=== PATIENT | male | born 1940 | race Caucasian/White ===

== ENCOUNTER 2016-06-15 12:15 | Emergency (ER) | payer MEDICARE, OTHER ==
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
[2016-06-15 12:39] VITALS: TEMP 97.6
[2016-06-15] MEDS: SODIUM CHLORIDE 0.9% 1000ML 1,000 ML IVS ONE (12:58)
--- NOTE | 2016-06-15 13:49 | CT ---
Study: CT of the Head. Indication: Found unresponsive Technique: Axial CT images of the head were acquired without intravenous contrast. Comparison: November 18, 2010. Findings: No CT evidence of acute ischemia, acute hemorrhage, mass, mass effect, midline shift, or extra-axial fluid collection. Tiny remote left caudate head lacunar infarct. Ventricles are normal in configuration without hydrocephalus. Patchy hypoattenuation of the periventricular and subcortical white matter noted. This is nonspecific but most consistent with chronic microvascular ischemic change. Global parenchymal volume loss and intracranial atherosclerosis noted as well. Paranasal sinuses are adequately aerated. Mastoid air cells are adequately aerated. Osseous structures and soft tissues are unremarkable. Impression: 1. No CT evidence of acute intracranial abnormality. Stable examination.If persistent concern for acute ischemia, correlation with MRI recommended. Electronically signed by: Ramin Luevano MD 06/15/2016 1:49 PM CDT
[2016-06-15 14:56] VITALS: BP 107/58; O2SAT 98
== END 2016-06-15 14:35 | disposition home or self-care (01) ==
LOC: ER 12:15
DX: F10.929 Alcohol use, unspecified with intoxication, unspecified (principal); Y90.8 Blood alcohol level of 240 mg/100 ml or more; Z86.73 Personal history of transient ischemic attack (TIA), and cerebral infarction without residual deficits; Z79.82 Long term (current) use of aspirin; Z79.899 Other long term (current) drug therapy
CPT/HCPCS: 70450; 80053; 80320; 82550; 82553; 84484; 85025; J7030

== ENCOUNTER → 2016-06-22 | Outpatient (CLI) | payer MEDICARE, OTHER | END | disposition home or self-care (01) | LOC: LAB.O 10:42 | PROVIDERS: ATTEND Nurse Practitioner Family | DX: I10 Essential (primary) hypertension (principal) ==

== ENCOUNTER → 2016-11-16 | Outpatient (CLI) | payer MEDICARE, OTHER | END | disposition home or self-care (01) | LOC: RESP 09:45 | PROVIDERS: ATTEND Orthopaedic Surgery | DX: M17.12 Unilateral primary osteoarthritis, left knee (principal) ==

== ENCOUNTER → 2016-11-18 | Outpatient (CLI) | payer MEDICARE, OTHER | END | disposition home or self-care (01) | LOC: LAB.O 09:31 | PROVIDERS: ATTEND Nurse Practitioner Family | DX: I10 Essential (primary) hypertension (principal) ==

== ENCOUNTER → 2016-11-23 | Outpatient (CLI) | payer MEDICARE, OTHER | END | disposition home or self-care (01) | LOC: LAB.O 10:02 | PROVIDERS: ATTEND Nurse Practitioner Family | DX: E87.1 Hypo-osmolality and hyponatremia (principal) ==

== ENCOUNTER 2016-12-11 05:48 | Inpatient (IN) | payer MEDICARE, OTHER ==
--- NOTE | 2016-12-10 11:20 | HP ---
CHIEF COMPLAINT: Left knee pain. HISTORY OF PRESENT ILLNESS: Mr. Diego is a 76-year-old male with a history of severe pain in the knee. He has had conservative measures inclusive of injections. He has had no recent trauma, denies any neurologic symptoms and denies any radiation of pain. He has had pain that now is putting him in a wheelchair. Because of his ongoing pain, he has requested operative intervention. After discussing the risks, benefits and alternatives to that, the patient has given informed consent. PAST SURGICAL HISTORY: 1. Open reduction and internal fixation of his ankle. MEDICATIONS: 1. Chlorthalidone. ALLERGIES: NO KNOWN DRUG ALLERGIES. CODE STATUS: Full code. IMMUNIZATIONS: Up to date. SOCIAL HISTORY: The patient does not use any illicit drugs. He does smoke and dose use alcohol on occasion. FAMILY HISTORY: None pertinent to today's complaint. REVIEW OF SYSTEMS: Negative except as indicated in the History of Present Illness. PHYSICAL EXAMINATION: VITAL SIGNS: Blood pressure 180/90. Pulse 70. Height 5'7". Weight 163. MENTAL STATUS: The patient is awake, alert, and is able to give a good history and participate in the physical. The patient is oriented to person, place and time. SKIN: Normal tone and turgor. HEENT: Normocephalic, atraumatic. Pupils equal, round and reactive. Mucosal membranes are moist. NECK: Normal range of motion. No thyromegaly, no lymphadenopathy. CHEST: Normal respiratory excursion. CARDIAC: Regular rate and rhythm. No murmurs, rubs or gallops. MUSCULOSKELETAL: Bilateral upper extremities show full active range of motion without significant pain. He has intact sensation and they are warm and well perfused. Strength is 5/5. There is no crepitus. There are no deformities. The right lower extremity shows range of motion of the hip. He does have some pain with range of motion of the knee with some crepitus. It is relatively minor and there is no effusion. The left lower extremity shows no significant pain with range of motion of the hip. He has pain and crepitus with range of motion of the knee. He has an effusion. He has no varus/valgus or anterior/ posterior laxity. Sensation is intact. ASSESSMENT: 1. Severe arthritis, failed conservative measures. PLAN: The plan at this point is for total knee arthroplasty. We have discussed the risks, benefits, and alternatives to that and the patient has given informed consent. #[id number] [facility]
[~2016-12-11 05:48] MED LIST: LACTATED RINGERS 1,000 ML ONE; SODIUM CHLORIDE 0.9% 250ML 250 ML ONE; VANCOMYCIN HCL INJ 1,000 MG VIAL IVPB ONE
[2016-12-11] MEDS ORDERED: TRANEXAMIC ACID 1,000 MG/10 ML VIAL ONE ×2 (05:49)
[2016-12-11] MEDS ORDERED: SODIUM CHLORIDE 0.9% 100ML 100 ML IVPB ONE (05:50)
[2016-12-11] MEDS ORDERED: MORPHINE SULFATE *EPIDURAL* 0.5 MG/ML VIAL ONE (06:13)
[2016-12-11] MEDS ORDERED: fentaNYL CITRATE INJ 50 MCG/ML AMP ONE (06:13)
[2016-12-11] MEDS ORDERED: LACTATED RINGERS 1,000 ML ONE (06:14)
[2016-12-11] MEDS ORDERED: LIDOCAINE 2 % GEL 5 ML TUBE TOP ONE (06:14)
[2016-12-11] MEDS ORDERED: ceFAZolin SODIUM 1 GM VIAL ONE ×4 (06:22→22:56)
[2016-12-11] MEDS ORDERED: SODIUM CHL 0.9% 100ML MINI-BAG 100 ML IVPB ONE (06:24)
--- NOTE | 2016-12-11 06:29 | RAD ---
Clinical History : pre op , MAIN Exam : PA and lateral views of the chest 12/11/2016 5:43 AM CDT Comparisons : PA and lateral views of the chest October 29, 2015 Findings : There are stable emphysematous changes throughout the lungs bilaterally. There is a 2.4 cm airspace opacity in the left midlung. The lungs are clear without focal consolidation or pleural effusion. The heart is normal in size. The mediastinal contours are normal in appearance. The thoracic spine is age appropriate. The shoulders are unremarkable. There are stable healed left-sided rib fractures. Limited evaluation of the upper abdomen demonstrates no gross abnormalities. Impression: 1. Focal airspace opacity in the left mid lung. 2. Chronic left-sided rib fractures. 3. Emphysema. Electronically signed by: Prieto Colón MD 12/11/2016 6:28 AM CDT
[2016-12-11] MEDS ORDERED: PROPOFOL 200 MG/20 ML VIAL IV ONE (07:00)
[2016-12-11] MEDS ORDERED: ATROPINE SULFATE 0.4 MG/ML 1ML VIAL ONE (07:00)
[2016-12-11] MEDS ORDERED: ACETAMINOPHEN 500 MG TAB PO PRN (07:12)
[2016-12-11] MEDS ORDERED: DEX 5% W/NACL 0.45% 1000ML 1,000 ML IVS PRN (07:12)
[2016-12-11] MEDS ORDERED: BISACODYL SUPPOSITORY 10 MG PR PRN (07:12)
[2016-12-11] MEDS ORDERED: MAGNESIUM HYDROXIDE 30 ML UD PO PRN (07:12)
[2016-12-11] MEDS ORDERED: TRANEXAMIC ACID INJ 1,000 MG in SODIUM CHLORIDE 0.9% 100ML 100 ML IVPB ONE (07:12)
[2016-12-11] MEDS ORDERED: NALOXONE HCL INJ 0.4 MG/ML VIAL IV PRN (07:12)
[2016-12-11] MEDS ORDERED: SODIUM CHLORIDE 0.9% (FLUSH) 10 ML SYG IV PRN (07:12)
[2016-12-11] MEDS ORDERED: ACETAMINOPHEN 325 MG TAB PO PRN (07:12)
[2016-12-11] MEDS ORDERED: ZOLPIDEM TARTRATE 5 MG TAB PO PRN (07:12)
[2016-12-11] MEDS ORDERED: BENZOCAINE-MENTH LOZ (CEPACOL) 1 EA LOZ MT PRN (07:12)
[2016-12-11] MEDS ORDERED: ONDANSETRON INJ 4 MG/2 ML VIAL IV PRN (07:12)
[2016-12-11] MEDS ORDERED: MORPHINE SULFATE INJ 10 MG/ML VIAL IM PRN (07:12)
[2016-12-11] MEDS ORDERED: PROMETHAZINE HCL INJ 25 MG in SODIUM CHLORIDE 0.9% 50ML 50 ML IVPB PRN (07:12)
[2016-12-11] MEDS ORDERED: ALUMINUM & MAGNESIUM HYDROXIDE 30 ML UD PO PRN (07:12)
[2016-12-11] MEDS ORDERED: MORPHINE SULFATE INJ 10 MG/ML VIAL IV PRN (07:12)
[2016-12-11] MEDS ORDERED: PROMETHAZINE HCL INJ 12.5 MG in SODIUM CHLORIDE 0.9% 50ML 50 ML IVPB PRN (07:12)
[2016-12-11] MEDS ORDERED: MORPHINE PCA 1 MG/ML 100ML 1 BAG in PREMIX BAG 1 BAG IVPB SCH (07:30)
[2016-12-11] MEDS: ceFAZolin SODIUM 1 GM VIAL ONE ×2 (07:55→08:41)
[2016-12-11] MEDS: VANCOMYCIN HCL INJ 1,000 MG VIAL IVPB ONE ×2 (07:56→08:41)
[2016-12-11] MEDS: BUPIVACAINE 0.5% W/EPI 30 ML VIAL INJ ONE ×2 (07:56→09:15)
[2016-12-11] MEDS ORDERED: MORPHINE PCA 1 MG/ML 100 ML BAG IVPB ONE (09:05)
[2016-12-11] MEDS ORDERED: SODIUM CHLORIDE 0.9% 250ML 250 ML ONE (11:04)
[2016-12-11] MEDS ORDERED: SODIUM CHL 0.9% 50ML MIN-BAG+ 50 ML IVPB ONE ×2 (11:04→22:56)
[2016-12-11] MEDS ORDERED: VANCOMYCIN HCL INJ 1,000 MG VIAL IVPB ONE (11:04)
[2016-12-11] MEDS: CELECOXIB 100 MG CAP PO SCH ×2 (14:47→16:17)
[2016-12-11] MEDS: NICOTINE PATCH 21 MG TD SCH ×2 (14:47→19:01)
[2016-12-11] MEDS: IV SET AND CAP CHANGE INJ INJ SCH (14:48)
[2016-12-11] MEDS: MAGNESIUM OXIDE 400 MG TAB PO SCH (14:48)
[2016-12-11] MEDS: ceFAZolin SODIUM 1 GM in SODIUM CHL 0.9% 50ML MIN-BAG+ 50 ML IVPB SCH (15:24)
[2016-12-11] MEDS: VANCOMYCIN HCL INJ 1,000 MG in SODIUM CHLORIDE 0.9% 250ML 250 ML IVPB SCH (17:22)
--- NOTE | 2016-12-11 19:01 | PCM.CORE ---
Physician DVT/VTE - Prophylaxis Currently: Patient already on anticoagulation therapy - Nurse DVT Assessment & Total Each Risk Factor Represents 5 Points: Elective Arthtroplasty Each Risk Factor Represents 3 Points: Age over 75 years Each Risk Factor Represents 2 Points: Major Surgery >45 minutes Each Risk Factor Represents 1 Point: Hx of smoking past year DVT Assessment Score: 11 - 5 or more Very High Risk Treatments: Early Ambulation *, Sequential Compression Device Pharmacological: Enoxaparin 30mg SQ BID
[2016-12-11] MEDS: HYDROcodone 5MG/APAP 325MG 1 EA TAB PO PRN (19:02)
[2016-12-11] MEDS ORDERED: ASPIRIN 325 MG PO SCH (20:00)
[2016-12-11] MEDS ORDERED: ATENOLOL 25 MG TAB ONE (20:11)
[2016-12-11] MEDS ORDERED: ENOXAPARIN SODIUM 30 MG/0.3 ML SYG SUBCU ONE (20:12)
[2016-12-11] MEDS ORDERED: ASPIRIN (ENTERIC COATED) 325 MG TAB PO ONE (20:12)
[2016-12-11] MEDS ORDERED: ASPIRIN TABLET 325 MG TAB ONE (20:13)
[2016-12-11] MEDS: DOCUSATE CALCIUM 240 MG CAP PO SCH (20:28)
[2016-12-11] MEDS ORDERED: ATENOLOL 100 MG PO SCH (21:00)
[2016-12-11] MEDS: ENOXAPARIN SODIUM 30 MG/0.3 ML SYG SUBCU SCH (21:20)
--- NOTE | 2016-12-11 22:25 | CONS ---
DATE OF CONSULTATION: 12/11/16 SUPERVISING PHYSICIAN: Castro Menchaca M.D. REASON FOR CONSULTATION: Postoperative total left knee. HISTORY OF PRESENT ILLNESS: Mr. Diego is a 76 year-old male patient who has a significant history of ongoing severe pain in his left knee. He has had previous conservative measure treatments that included injections but had failed to receive any significant improvement. In fact, his symptoms were progressing to where he was only able to ambulate minimally and was using a wheelchair. Due to the ongoing pain and inability to ambulate as normal in the past, he requested an operative intervention and had a total left knee arthroplasty performed today by Dr. Nikolas Navarro. The patient was seen in immediate postoperative state in stable condition. PAST MEDICAL HISTORY: 1. Chronic tobacco abuse. 2. Hypertension. 3. Dementia. PAST SURGICAL HISTORY: 1. Open reduction and internal fixation of the ankle. 2. Hernia repair. 3. Bilateral cataract surgery. HOME MEDICATIONS: 1. Chlorthalidone 25 mg daily. 2. Tenormin 100 mg b.i.d. 3. Aspirin 325 mg 1 daily. ALLERGIES: NO KNOWN DRUG ALLERGIES. FAMILY HISTORY: Unremarkable. SOCIAL HISTORY: The patient is retired. He is and lives in [place]. He does drink alcohol on a regular basis. He also smokes approximately a pack of cigarettes a day. REVIEW OF SYSTEMS: Negative except as noted in the History of Present Illness and current hospitalization. PHYSICAL EXAMINATION: VITAL SIGNS: Temperature 98.8, pulse 61, blood pressure 121/65, respirations 17 , satting 96% on room air. Admission weight 69.4 kg. GENERAL: The patient appears to be comfortable in no acute distress. He is alert. HEENT: Tympanic membranes are clear bilaterally. Oropharynx is pink and moist without any lesions. NECK: Supple, non-tender with full range of motion. There is no jugular venous distention noted. CHEST: Clear to auscultation, just slightly diminished towards the bases. HEART: Regular rate and rhythm without appreciable murmurs, gallops, or rubs. ABDOMEN: Soft, non-tender with positive bowel sounds. EXTREMITIES: No clubbing, cyanosis or edema. Left knee has a bulky dressing in place. Pulses distally are strong. Capillary refill is brisk. NEUROLOGIC: He is alert and oriented times three. Facial features were symmetrical. Cranial nerves II-XII are grossly intact. LABORATORY: Postoperative H&H is pending. ASSESSMENT: 1. Immediate postoperative day 1 for total left knee arthroplasty. 2. Severe arthritis having failed to respond to conservative outpatient treatment measures requiring surgical intervention as noted in #1 for symptomatic control. 3. Chronic tobacco abuse. 4. Hypertension. 5. Chronic alcohol abuse. PLAN: Will continue to follow the patient medically as he continues to transition through his postoperative phase into his physical therapy and rehabilitation efforts. Given that he does have a history of chronic tobacco use, we have a nicotine patch in place. DVT prophylaxis is in place as per protocol. Given that he also has a past history of alcohol consumption, will monitor this closely and provide any intervention as needed as far as medications for agitation. Will anticipate discharge at the discretion of Physical Therapy and Orthopedic services with Dr. Nikolas Navarro. Until then, will continue to monitor and treat appropriately. #[id number] [facility]
[2016-12-11] MEDS: TEMAZEPAM 15 MG CAP PO PRN (22:44)
[2016-12-12] MEDS: ceFAZolin SODIUM 1 GM in SODIUM CHL 0.9% 50ML MIN-BAG+ 50 ML IVPB SCH ×3 (00:13→16:21)
[2016-12-12] MEDS ORDERED: SODIUM CHLORIDE 0.9% 250ML 250 ML ONE ×2 (01:44→15:04)
[2016-12-12] MEDS ORDERED: VANCOMYCIN HCL INJ 1,000 MG VIAL IVPB ONE ×2 (01:44→15:05)
[2016-12-12] MEDS: TEMAZEPAM 15 MG CAP PO PRN ×2 (02:09→20:55)
[2016-12-12] MEDS: HYDROcodone 5MG/APAP 325MG 1 EA TAB PO PRN ×2 (02:09→16:21)
[2016-12-12] MEDS: VANCOMYCIN HCL INJ 1,000 MG in SODIUM CHLORIDE 0.9% 250ML 250 ML IVPB SCH ×2 (06:20→18:42)
[2016-12-12] MEDS: CELECOXIB 100 MG CAP PO SCH ×2 (08:03→16:21)
[2016-12-12] MEDS ORDERED: SODIUM CHL 0.9% 50ML MIN-BAG+ 50 ML IVPB ONE ×3 (08:59→23:25)
[2016-12-12] MEDS ORDERED: ceFAZolin SODIUM 1 GM VIAL ONE ×3 (09:00→23:25)
[2016-12-12] MEDS: ATENOLOL 25 MG TAB PO SCH ×2 (09:45→20:55)
[2016-12-12] MEDS: MAGNESIUM OXIDE 400 MG TAB PO SCH (09:45)
[2016-12-12] MEDS: CHLORTHALIDONE 25 MG TAB PO SCH (09:45)
[2016-12-12] MEDS: NICOTINE PATCH 21 MG TD SCH (09:45)
[2016-12-12] MEDS: ENOXAPARIN SODIUM 30 MG/0.3 ML SYG SUBCU SCH ×2 (10:30→20:56)
[2016-12-12] MEDS ORDERED: chlordiazePOXIDE HCL 5 MG CAP ONE (12:55)
[2016-12-12] MEDS: chlordiazePOXIDE HCL 5 MG CAP PO SCH ×2 (12:59→20:56)
--- NOTE | 2016-12-12 13:23 | PN ---
DATE: 12/12/16 SUBJECTIVE: Mr. Diego subjectively is having some confusion and this may extend from a history of alcohol abuse. He denies heavy use but given his current status he acts more like he is having some type of alcohol-related withdrawal. From the standpoint of function, he is moving all extremities well. Strength is 5/5. Sensation is intact and they are warm and well perfused. OBJECTIVE: He is afebrile. Vital signs are stable. Dressing is clean, dry and intact. ASSESSMENT: 1. Status post total knee arthroplasty. PLAN: At this point, I think we need to start him on some Librium and try to control his alcohol-related symptoms. He is not over using any narcotic as he has only pushed his APPLIANCE TECHNICIAN 3 times since surgery. He will continue on with physical therapy. #[id number] [facility]
[2016-12-12] MEDS ORDERED: THIAMINE HCL INJ 100 MG/ML VIAL ONE (14:36)
[2016-12-12] MEDS ORDERED: SODIUM CHLORIDE 0.9% 1000ML 1,000 ML ONE (14:36)
[2016-12-12] MEDS ORDERED: MULTIPLE VITAMIN 10 ML VIAL ONE (14:36)
[2016-12-12] MEDS: MULTIPLE VITAMIN INJ 10 ML, THIAMINE HCL INJ 100 MG in SODIUM CHLORIDE 0.9% 1000ML 1,00... IVS SCH (14:39)
[2016-12-12] MEDS: CYCLOBENZAPRINE HCL 10 MG TAB PO PRN (16:19)
--- NOTE | 2016-12-12 17:18 | PN ---
DATE: 12/12/16 SUPERVISING PHYSICIAN: Castro Menchaca M.D. SUBJECTIVE: Last night the patient had some episodes of confusion which seems to be a little bit less this morning. He does participate with his physical therapy but is having some disorientation at times. Given that he does have a significant past history of alcohol abuse as discussed with Dr. Navarro, will start him on some Librium and monitor closely. He remains afebrile. OBJECTIVE: VITAL SIGNS: Temperature 97.9, pulse 66, blood pressure 135/62, respirations 16, satting 92% on room air. I's and O's show a negative balance of 630 with 870 in, 1500 out. Weight 69.4 kg. CHEST: Lungs are clear to auscultation. HEART: Regular rate and rhythm. ABDOMEN: Soft, non-tender. Positive bowel sounds. EXTREMITIES: No clubbing, cyanosis or edema. Left knee has a dressing in place which is clean and dry with no signs of infection. Pulses distally are strong. Capillary refill is brisk. NEUROLOGIC: He is alert to himself and his . Requires re-orientation at times but is very pleasant and has not had any continued agitation episodes. LABORATORY: Postoperative H&H is 12.3 and 36.6. ASSESSMENT: 1. Postoperative day 1 for total left knee arthroplasty performed by Dr. Nikolas Navarro. 2. Severe arthritis having failed to respond to outpatient conservative treatment measures requiring surgical intervention as noted in #1 for symptomatic control. 3. History of chronic tobacco abuse. 4. Chronic alcohol abuse with some episodes of mild confusion likely due to some early signs of withdrawal requiring close monitoring and initiation of Librium. 5. Hypertension, stable. PLAN: Will continue to follow the patient as he progresses through his physical therapy efforts. Discussed with Dr. Navarro on treating the patient with some Librium which he has already ordered and further monitoring of the patient' s neurologic symptoms with again concerns for the early withdrawals of alcohol. Given that he does have a history of alcohol abuse, I will go ahead and order , once he finishes postoperative IV fluids, I will go ahead an order him a multivitamin infusion with some thiamine just to help with nutritional status and hopefully resolve some of the confusion. Will anticipate discharge at Dr. Navarro and orthopedic's discretion, and again based off the patient's mental status in regards to his confusion and agitation with the possible withdrawals. Until discharge, will continue to monitor and treat appropriately. #[id number] [facility]
--- NOTE | 2016-12-12 18:23 | RAD ---
Procedure: XR KNEE 1-2 VIEWS Exam Date: 12/11/2016 7:13 AM CDT Ordering Provider: ANNA IRWIN Clinical Indication: TKA Comparison: None Findings: Status post total knee arthroplasty with patellar resurfacing. Expected postoperative gas within the joint space. No periprosthetic fractures or malalignments. No other soft tissue abnormality. Vascular calcifications appreciated. Impression: Status post left total knee arthroplasty without complication. Electronically signed by: Ovidio Keith MD 12/12/2016 6:22 PM CDT
[2016-12-12] MEDS: traMADol HCL 50 MG TAB PO PRN (20:55)
[2016-12-12] MEDS: DOCUSATE CALCIUM 240 MG CAP PO SCH (20:59)
[2016-12-13] MEDS: HYDROcodone 5MG/APAP 325MG 1 EA TAB PO PRN ×3 (01:41→12:36)
[2016-12-13] MEDS ORDERED: SODIUM CHLORIDE 0.9% 250ML 250 ML ONE ×3 (04:51→19:36)
[2016-12-13] MEDS ORDERED: VANCOMYCIN HCL INJ 1,000 MG VIAL IVPB ONE ×3 (04:51→19:37)
[2016-12-13] MEDS: VANCOMYCIN HCL INJ 1,000 MG in SODIUM CHLORIDE 0.9% 250ML 250 ML IVPB SCH ×2 (05:29→17:25)
[2016-12-13] MEDS ORDERED: SODIUM CHL 0.9% 50ML MIN-BAG+ 50 ML IVPB ONE ×3 (08:16→19:36)
[2016-12-13] MEDS ORDERED: ceFAZolin SODIUM 1 GM VIAL ONE ×3 (08:17→19:37)
[2016-12-13] MEDS: chlordiazePOXIDE HCL 5 MG CAP PO SCH (08:22)
[2016-12-13] MEDS: ATENOLOL 25 MG TAB PO SCH ×2 (08:22→20:31)
[2016-12-13] MEDS: MAGNESIUM OXIDE 400 MG TAB PO SCH (08:22)
[2016-12-13] MEDS: CELECOXIB 100 MG CAP PO SCH ×2 (08:22→17:26)
[2016-12-13] MEDS: NICOTINE PATCH 21 MG TD SCH (08:25)
[2016-12-13] MEDS: ceFAZolin SODIUM 1 GM in SODIUM CHL 0.9% 50ML MIN-BAG+ 50 ML IVPB SCH ×5 (08:25→23:51)
[2016-12-13] MEDS: ENOXAPARIN SODIUM 30 MG/0.3 ML SYG SUBCU SCH ×2 (08:26→20:32)
[2016-12-13] MEDS: CHLORTHALIDONE 25 MG TAB PO SCH (08:26)
[2016-12-13] MEDS: SODIUM CHLORIDE 0.9% (FLUSH) 10 ML SYG IV SCH ×2 (08:26→20:32)
[2016-12-13] MEDS ORDERED: THIAMINE HCL INJ 100 MG/ML VIAL ONE (13:16)
[2016-12-13] MEDS ORDERED: SODIUM CHLORIDE 0.9% 1000ML 1,000 ML ONE (13:16)
[2016-12-13] MEDS ORDERED: MULTIPLE VITAMIN 10 ML VIAL ONE (13:17)
[2016-12-13] MEDS: MULTIPLE VITAMIN INJ 10 ML, THIAMINE HCL INJ 100 MG in SODIUM CHLORIDE 0.9% 1000ML 1,00... IVS SCH (13:21)
[2016-12-13] MEDS: CYCLOBENZAPRINE HCL 10 MG TAB PO PRN (14:52)
[2016-12-13] MEDS ORDERED: HALOPERIDOL LACTATE INJ 5 MG/ML VIAL IM ONE (17:07)
[2016-12-13] MEDS ORDERED: chlordiazePOXIDE HCL 25 MG CAP PO ONE (17:12)
[2016-12-13] MEDS ORDERED: chlordiazePOXIDE HCL 5 MG CAP ONE (17:17)
[2016-12-13] MEDS ORDERED: chlordiazePOXIDE HCL 5 MG CAP PO ONE (17:40)
--- NOTE | 2016-12-13 18:45 | PN ---
DATE: 12/13/16 SUPERVISING PHYSICIAN: Castro Menchaca M.D. SUBJECTIVE: The patient continues to have episodes of confusion. He has bulky dressings in place just to prevent him from picking at his dressing. He is pleasantly confused and is cooperative, but it takes a good deal of effort to reorient at times. He is participating with his physical therapy. OBJECTIVE: VITAL SIGNS: He remains afebrile, T max 98.7, pulse 64, blood pressure 134/78, respirations 16, satting 95% on room air. I's and O's show a positive balance of 1970 with 2171 in, 200 out, although he is having some incontinence as his Ahn was removed. Weight 69.4 kg. CHEST: Lungs remain clear to auscultation. HEART: Regular rate and rhythm. ABDOMEN: Soft, non- tender. Positive bowel sounds. EXTREMITIES: Left knee remains with a bulky dressing in place with Blaze bandage. Pulses distally are strong. Capillary refill is brisk. NEUROLOGIC: He is alert to himself, but disoriented to time and place. He does know that he is confused at times and is apologetic for this. ASSESSMENT: 1. Postoperative day 2 for total left knee arthroplasty performed by Dr. Nikolas Navarro. 2. Severe arthritis of the left knee having failed to respond to outpatient conservative treatment measures requiring surgical intervention as noted in #1 for symptomatic control. 3. History of chronic alcohol abuse with some possible mild alcohol withdrawals. 4. Chronic tobacco abuse. 5. Hypertension, stable. PLAN: Will continue to follow the patient as he progresses through his physical therapy efforts. I did talk with Dr. Navarro given that the patient is confused and has a past history of having some issues with skin contamination on his legs, will continue with an additional 24 hours of postoperative antibiotic coverage. His bulky dressing does remain in place just to prevent him from having any episodes of picking at his incisional site. He is participating with his physical therapy. Will continue with a banana bag and 100 of thiamine daily. He is doing well with Librium which had to be increased , but continues to have some confusion although he is pleasantly confused. His confusion is not preventing him from participating in any of his physical therapy efforts. Will anticipate discharge at the discretion of Dr. Navarro and Physical Therapy. Until then, continue to monitor the patient closely and treat appropriately as needed. #[id number] [facility] [place]
[2016-12-13] MEDS: DOCUSATE CALCIUM 240 MG CAP PO SCH (20:31)
[2016-12-13] MEDS: chlordiazePOXIDE HCL 25 MG CAP PO SCH (20:32)
[2016-12-13] MEDS: TEMAZEPAM 15 MG CAP PO PRN ×2 (22:03→23:08)
[2016-12-14] MEDS: VANCOMYCIN HCL INJ 1,000 MG in SODIUM CHLORIDE 0.9% 250ML 250 ML IVPB SCH (05:59)
--- NOTE | 2016-12-14 08:27 | PN ---
DATE: 12/13/16 SUBJECTIVE: Mr. Diego is somewhat better with regards to his mental status. We put him in Librium and that seems to have improved it significantly. Otherwise , he has good pain control right now. OBJECTIVE: Afebrile. Vital signs stable. Wound is clean. There are no signs or symptoms of infection. ASSESSMENT: Status post total knee arthroplasty. PLAN: He will continue with physical therapy. He seems to be better able to tolerate it and mentally seems to be improved. #[id number] [facility]
--- NOTE | 2016-12-14 08:28 | PN ---
DATE: 12/14/16 SUBJECTIVE: He is doing well. OBJECTIVE: Afebrile. Vital signs stable. Wound is clean. There are no signs or symptoms of infection. ASSESSMENT: Status post total knee arthroplasty. PLAN: He will continue with his weight-bearing as tolerated and increasing CPM. We will continue with the Librium. [facility][id number] [facility]
--- NOTE | 2016-12-14 08:39 | OP ---
DATE OF PROCEDURE: 12/11/16 PREOPERATIVE DIAGNOSIS: 1. Left knee osteoarthritis. POSTOPERATIVE DIAGNOSIS: 1. Left knee osteoarthritis. PROCEDURE: 1. Left total knee arthroplasty. SURGEON: Nikolas Navarro MD. RETURNED TELEPHONE EQUIPMENT APPRAISER: Luis Bonner CST, SA-C. ANESTHESIA: General. COMPLICATIONS: None. FINDINGS: Severe osteoarthritis. INDICATION: Mr. Diego has a long history of knee pain that has been severe and worsened. It has been refractory to conservative measures. Because of the ongoing nature of the pain, he has requested total knee arthroplasty. After discussing the risks, benefits and alternatives to that, the patient has given informed consent for total knee arthroplasty. PROCEDURE: The patient was brought to the Operating Room and placed in supine position. General anesthesia was induced and the patient's leg was sterilely prepped and draped. Following prepping and draping, the distal femur was exposed and using an intramedullary guide, the distal femoral cut was made. The appropriate sized cutting block was measured, pinned into place, and the anterior, posterior, and chamfer cuts were made. The ACL was transected and the tibia was subluxed. Both the medial and lateral menisci were removed. An intramedullary guide was used to make the proximal tibial cut. The appropriate sized base plate was placed and a trial polyethylene was placed. The trial femur was placed, the knee was reduced, and the knee was taken through a range of motion. The knee was stable in anterior, posterior, varus and valgus stress. The patella tracked anatomically without evidence of subluxation or dislocation. After trialing, the trial components were removed and the bony surfaces were thoroughly irrigated with saline. Following irrigation, the surfaces were dried and the final components were cemented into place. The excess cement was removed and the remaining cement was allowed to cure. The knee was again taken through a range of motion to confirm stability. The wound was then irrigated with saline and closure was performed using PDS to approximate the arthrotomy followed by closure of the subcutaneous tissues with a combination of running and interrupted Monocryl sutures. Sterile dressing was placed. The patient was awoken from anesthesia and taken to Recovery. POSTOPERATIVE INSTRUCTIONS: The patient will be weight-bearing as tolerated on postoperative day 1. COMPONENTS: [employer] Triathlon knee, size 5 femur, size 5 tibia, 9 mm insert. #[id number] [facility]
[2016-12-14] MEDS: MAGNESIUM OXIDE 400 MG TAB PO SCH (08:55)
[2016-12-14] MEDS: NICOTINE PATCH 21 MG TD SCH (08:55)
[2016-12-14] MEDS: ENOXAPARIN SODIUM 30 MG/0.3 ML SYG SUBCU SCH ×2 (08:56→21:11)
[2016-12-14] MEDS: CELECOXIB 100 MG CAP PO SCH ×2 (08:56→17:12)
[2016-12-14] MEDS: chlordiazePOXIDE HCL 25 MG CAP PO SCH ×4 (08:56→21:09)
[2016-12-14] MEDS: ATENOLOL 25 MG TAB PO SCH ×2 (08:56→21:09)
[2016-12-14] MEDS: SODIUM CHLORIDE 0.9% (FLUSH) 10 ML SYG IV SCH ×2 (08:56→21:11)
[2016-12-14] MEDS: IV SET AND CAP CHANGE INJ INJ SCH (09:32)
[2016-12-14] MEDS: CHLORTHALIDONE 25 MG TAB PO SCH (09:34)
[2016-12-14] MEDS ORDERED: SODIUM CHLORIDE 0.9% 1000ML 1,000 ML ONE (14:21)
[2016-12-14] MEDS ORDERED: MULTIPLE VITAMIN 10 ML VIAL ONE (14:22)
[2016-12-14] MEDS ORDERED: THIAMINE HCL INJ 100 MG/ML VIAL ONE (14:22)
[2016-12-14] MEDS: MULTIPLE VITAMIN INJ 10 ML, THIAMINE HCL INJ 100 MG in SODIUM CHLORIDE 0.9% 1000ML 1,00... IVS SCH (14:47)
[2016-12-14] MEDS: HYDROcodone 5MG/APAP 325MG 1 EA TAB PO PRN (17:05)
[2016-12-14] MEDS ORDERED: BISACODYL SUPPOSITORY 10 MG PR ONE (21:00)
[2016-12-14] MEDS ORDERED: MAGNESIUM HYDROXIDE 30 ML UD PO ONE (21:00)
[2016-12-14] MEDS: DOCUSATE CALCIUM 240 MG CAP PO SCH (21:08)
[2016-12-14] MEDS: TEMAZEPAM 15 MG CAP PO PRN (21:09)
[2016-12-15] MEDS: HYDROcodone 5MG/APAP 325MG 1 EA TAB PO PRN (04:56)
[2016-12-15] MEDS: CELECOXIB 100 MG CAP PO SCH ×2 (07:53→16:46)
--- NOTE | 2016-12-15 09:13 | PN ---
SUPERVISING PHYSICIAN: Toney Donahue MD DATE: 12/14/16 SUBJECTIVE: The patient continues with some confusion episodes. We had to give him some Haldol and up his Librium yesterday as he was being very uncooperative. This morning, he was actually much more oriented and was working with physical therapy. He remains afebrile. OBJECTIVE: VITAL SIGNS: T-max 98.9. Pulse 71. Blood pressure 149/71. Respirations 20. Saturation 97% on room air. I&Os are fairly well balanced, but he has had multiple voids that have not been measured. Weight 69.4 kg. CHEST: Lungs remain clear to auscultation, just slightly diminished towards the bases. HEART: Regular rate and rhythm. ABDOMEN: Soft, nontender. Positive bowel sounds. EXTREMITIES: No cyanosis, clubbing or edema. Left knee has a dressing in place that is clean and dry. There is no erythema, no signs of infection. Distal pulses are strong. Capillary refill is brisk. NEUROLOGIC: He is alert to himself, place, time and event today. ASSESSMENT: 1. Postoperative day 3 for total left knee arthroplasty performed by Dr. Nikolas Navarro. 2. Severe arthritis of the left knee having failed to respond to outpatient conservative treatment measures requiring surgical intervention as noted in #1 for symptomatic control. 3. History of chronic alcohol abuse with some possible mild alcohol withdrawal symptoms. 4. Chronic tobacco abuse. 5. Hypertension, stable. PLAN: We will continue to follow the patient through his physical rehab efforts. I did up his Librium last night as he was continuing to have some confusion to 25 mg q.i.d. He remains on multivitamin infusion with thiamine 100 mg, today will be the third bag. We will continue to monitor his mental status and confusion persists at night, certainly we utilize Haldol and Ativan as they have been very successful late in the afternoons when he has shown some degree of Sundowner's. We are trying to prevent him from being sedated in the morning so that he can continue with his physical therapy throughout the day. We will anticipate discharge at physical therapy and Dr. Navarro's discretion. Until then, we will continue to monitor the patient closely and treat appropriately. [facility][id number] [facility]
[2016-12-15] MEDS: ceFAZolin SODIUM 1 GM in SODIUM CHL 0.9% 50ML MIN-BAG+ 50 ML IVPB SCH (09:28)
[2016-12-15] MEDS: CHLORTHALIDONE 25 MG TAB PO SCH (09:30)
[2016-12-15] MEDS: chlordiazePOXIDE HCL 25 MG CAP PO SCH ×4 (09:30→21:46)
[2016-12-15] MEDS: ENOXAPARIN SODIUM 30 MG/0.3 ML SYG SUBCU SCH ×2 (09:30→21:46)
[2016-12-15] MEDS: ATENOLOL 25 MG TAB PO SCH ×3 (09:30→21:52)
[2016-12-15] MEDS: MAGNESIUM OXIDE 400 MG TAB PO SCH (09:30)
[2016-12-15] MEDS: SODIUM CHLORIDE 0.9% (FLUSH) 10 ML SYG IV SCH ×2 (09:31→21:45)
[2016-12-15] MEDS: NICOTINE PATCH 21 MG TD SCH (09:31)
[2016-12-15] MEDS ORDERED: SODIUM CHLORIDE 0.9% 1000ML 1,000 ML ONE (12:55)
[2016-12-15] MEDS ORDERED: THIAMINE HCL INJ 100 MG/ML VIAL ONE (12:56)
[2016-12-15] MEDS ORDERED: MULTIPLE VITAMIN 10 ML VIAL ONE (12:56)
[2016-12-15] MEDS: MULTIPLE VITAMIN INJ 10 ML, THIAMINE HCL INJ 100 MG in SODIUM CHLORIDE 0.9% 1000ML 1,00... IVS SCH (13:04)
[2016-12-15] MEDS ORDERED: chlordiazePOXIDE HCL 25 MG CAP PO PRN (21:00)
[2016-12-15] MEDS: DOCUSATE CALCIUM 240 MG CAP PO SCH (21:45)
[2016-12-16] MEDS ORDERED: PRENATAL MULTIVIT-MIN W/FE-FA 1 EA TAB ONE (07:19)
[2016-12-16] MEDS ORDERED: THIAMINE HCL 100 MG TAB PO ONE (07:21)
[2016-12-16] MEDS: CELECOXIB 100 MG CAP PO SCH ×2 (09:00→17:43)
[2016-12-16] MEDS: MAGNESIUM OXIDE 400 MG TAB PO SCH (09:00)
[2016-12-16] MEDS: chlordiazePOXIDE HCL 25 MG CAP PO SCH ×4 (09:00→19:17)
[2016-12-16] MEDS: NICOTINE PATCH 21 MG TD SCH (09:00)
[2016-12-16] MEDS: ATENOLOL 25 MG TAB PO SCH ×2 (09:00→20:37)
--- NOTE | 2016-12-16 09:51 | PN ---
SUPERVISING PHYSICIAN: Toney Donahue MD DATE: 12/15/16 SUBJECTIVE: The patient continues to be confused at times. He is having some difficulty following his physical therapy efforts where he has difficulty following basic directions. He remains afebrile. He has had no nausea or vomiting. OBJECTIVE: VITAL SIGNS: Temperature 96.7. Pulse 58. Blood pressure 97/60. Respirations 12. Saturation 96% on room air. I&Os again are not well managed as he is voiding. Weight 69.4. CHEST: Lungs clear to auscultation. HEART: Regular rate and rhythm. . ABDOMEN: Obese, but soft and nontender. Positive bowel sounds. EXTREMITIES: Left knee has a dressing in place which is clean and dry. There are no signs of infection. Distal pulses are strong with brisk capillary refill. NEUROLOGIC: He is alert to himself and place, but is unable to recall, month, year and is drowsy upon exam. ASSESSMENT: 1. Postoperative day 4 for total left knee arthroplasty performed by Dr. Nikolas Navarro. 2. Severe arthritis of the left knee having failed to respond to outpatient conservative treatment measures requiring surgical intervention as noted in #1 for symptomatic control. 3. History of chronic alcohol abuse with some possible mild alcohol withdrawal , requiring Librium.s. 4. Chronic tobacco abuse. 5. Hypertension, stable. PLAN: The patient continues to have some slight difficulty following basic commands and instructions during physical therapy efforts. He does ambulate in the hallway, but, again, has episodes where he fails to follow even basic commands. I did increase his Librium initially to 25 mg b.i.d. and based on current exam today, he is a little bit more sedated than previous and therefore we will decrease his Librium to 25 mg b.i.d. and monitor closely. We will continue to follow him as he progresses through his physical therapy efforts. Anticipate discharge at physical therapy and Dr. Navarro's discretion. Until discharge, we will continue with replacement of vitamins with vitamin, folic acid and thiamine. We will continue to monitor the patient closely and treat appropriately. #[id number] [facility]
--- NOTE | 2016-12-16 10:18 | PN ---
DATE: 12/15/16 SUBJECTIVE: Mr. Diego has no pain. He is a little bit better with regards to his mental status this morning. OBJECTIVE: Afterward. Vital signs stable. Wound is clean. There are no signs or symptoms of infection. ASSESSMENT: Status post total knee arthroplasty. PLAN: He will continue with physical therapy. We will continue to monitor his mental status and adjust medications according. #[id number] [facility]
--- NOTE | 2016-12-16 10:24 | PN ---
DATE: 12/16/16 SUBJECTIVE: Mr. Diego has a little bit more confusion this morning. He has not really participate in physical therapy as of yet. OBJECTIVE: Afterward. Vital signs stable. Wound is clean. There are no signs or symptoms of infection. ASSESSMENT: Status post total knee arthroplasty. PLAN: With regards to the total knee, we are going to continue to try to do physical therapy on an as tolerated basis. We are also going to modify his Librium to see if we can help with his confusion. #[id number] [facility]
[2016-12-16] MEDS: ENOXAPARIN SODIUM 30 MG/0.3 ML SYG SUBCU SCH ×2 (10:30→21:31)
[2016-12-16] MEDS: PRENATAL MULTIVIT-MIN W/FE-FA 1 EA TAB PO SCH (10:34)
[2016-12-16] MEDS: CHLORTHALIDONE 25 MG TAB PO SCH (10:34)
[2016-12-16] MEDS: SODIUM CHLORIDE 0.9% (FLUSH) 10 ML SYG IV SCH ×2 (10:36→20:38)
[2016-12-16] MEDS: THIAMINE HCL 100 MG TAB PO SCH (10:36)
[2016-12-16] MEDS ORDERED: chlordiazePOXIDE HCL 5 MG CAP PO PRN (19:52)
[2016-12-16] MEDS: traMADol HCL 50 MG TAB PO PRN (20:38)
[2016-12-16] MEDS: DOCUSATE CALCIUM 240 MG CAP PO SCH (20:38)
--- NOTE | 2016-12-17 07:50 | PN ---
DATE: 12/16/16 SUBJECTIVE: The patient in the early evening is lying in his bed with most of his clothing removed. He is noticeably somewhat confused, though is actually quite pleasant and answers questions appropriately. He admits to not knowing exactly where he is at. He has been on fairly high doses of his Librium the last few days and this has been significantly curtailed and cut back today. He has become more responsive and able to more fully participate with his rehabilitation today. This reduction in using the Librium only on an as needed basis will continue. OBJECTIVE: VITAL SIGNS: Afebrile. Blood pressure 127/70. Pulse oximetry 97% on room air. LUNGS: Clear. HEART: Regular. The patient is having a significant problem with his brain being able to fully function and will require some ongoing penitentiary care along with rehab. LABORATORY: No recent lab studies performed. ASSESSMENT: 1. Postoperative day #5, left total knee arthroplasty, performed by Dr. Nikolas Navarro, orthopedic surgeon. 2. Severe arthritis of the left knee having failed to respond to outpatient therapy and required surgical intervention to assist with symptom control. 3. History of chronic alcohol abuse with some mild alcohol withdrawal, currently on Librium which seemed to over-sedate the patient and now being withdrawn a little bit as we hopefully get him back to a more normal baseline. 4. Chronic tobacco abuse. 5. History of chronic hypertension, stable. PLAN: Continue with current rehabilitation. Cut back on Librium to allow the patient to be a little more able to participate with his rehab and get stronger. He may eventually require ongoing rehabilitation either in a rehab hospital or on Swing Bed so that he will be able to safely return home. At this time, he is not safe to return home and will require ongoing close observation and management. #[id number] [facility]
[2016-12-17] MEDS: ALBUTEROL SULFATE 2.5 MG/3 ML VIAL NEB SCH ×4 (08:00→20:00)
--- NOTE | 2016-12-17 08:16 | PN ---
DATE: 12/17/16 SUBJECTIVE: Mr. Diego this morning is somnolent, but arousable. He is not really having any significant pain. OBJECTIVE: Afebrile. Vital signs stable. Wound is clean. There are no signs or symptoms of infection. ASSESSMENT: Status post total knee arthroplasty. PLAN: He will continue with weight-bearing. We will continue to modify medications and try to get him back to full and cooperative mental status. [facility][id number] [facility]
--- NOTE | 2016-12-17 08:51 | OP ---
DATE OF PROCEDURE: 12/11/16 PREOPERATIVE DIAGNOSIS: 1. Osteoarthritis of the knee. POSTOPERATIVE DIAGNOSIS: 1. Osteoarthritis of the knee. PROCEDURE: 1. Total knee arthroplasty. SURGEON: Nikolas Navarro MD. POTATO CHIP FRYER: Luis Bonner CST, SA-C. ANESTHESIA: General. COMPLICATIONS: None. FINDINGS: Severe osteoarthritis. INDICATION: Mr. Diego has a long history of knee pain that has been getting progressively worse. He has had an injection as well as physical therapy and anti-inflammatories. Unfortunately, he has failed to gain relief and is requesting total knee arthroplasty. After discussing the risks, benefits and alternatives to operative therapy, the patient has given informed consent for total knee arthroplasty. PROCEDURE: The patient was brought to the Operating Room and placed in supine position. General anesthesia was induced and the patient's leg was sterilely prepped and draped. Following prepping and draping, the distal femur was exposed and using an intramedullary guide, the distal femoral cut was made. The appropriate sized cutting block was measured, pinned into place, and the anterior, posterior, and chamfer cuts were made. The ACL was transected and the tibia was subluxed. Both the medial and lateral menisci were removed. An intramedullary guide was used to make the proximal tibial cut. The appropriate sized base plate was placed and a trial polyethylene was placed. The trial femur was placed, the knee was reduced, and the knee was taken through a range of motion. The knee was stable in anterior, posterior, varus and valgus stress. The patella tracked anatomically without evidence of subluxation or dislocation. After trialing, the trial components were removed and the bony surfaces were thoroughly irrigated with saline. Following irrigation, the surfaces were dried and the final components were cemented into place. The excess cement was removed and the remaining cement was allowed to cure. The knee was again taken through a range of motion to confirm stability. The wound was then irrigated with saline and closure was performed using PDS to approximate the arthrotomy followed by closure of the subcutaneous tissues with a combination of running and interrupted Monocryl sutures. Sterile dressing was placed. The patient was awoken from anesthesia and taken to Recovery. POSTOPERATIVE INSTRUCTIONS: The patient will be weight-bearing as tolerated on postoperative day 1. COMPONENTS: Vessix Triathlon knee, size 5 femur, size 5 tibia, 9 mm insert. #[id number] [facility]
[2016-12-17] MEDS: CELECOXIB 100 MG CAP PO SCH ×2 (08:58→17:32)
[2016-12-17] MEDS: IV SET AND CAP CHANGE INJ INJ SCH (08:59)
[2016-12-17] MEDS: THIAMINE HCL 100 MG TAB PO SCH (09:29)
[2016-12-17] MEDS: CHLORTHALIDONE 25 MG TAB PO SCH (09:29)
[2016-12-17] MEDS: SODIUM CHLORIDE 0.9% (FLUSH) 10 ML SYG IV SCH ×2 (09:29→20:24)
[2016-12-17] MEDS: PRENATAL MULTIVIT-MIN W/FE-FA 1 EA TAB PO SCH (09:29)
[2016-12-17] MEDS: NICOTINE PATCH 21 MG TD SCH (09:29)
[2016-12-17] MEDS: MAGNESIUM OXIDE 400 MG TAB PO SCH (09:29)
[2016-12-17] MEDS: ATENOLOL 25 MG TAB PO SCH ×3 (09:29→21:47)
[2016-12-17] MEDS ORDERED: IPRATROPIUM/ALBUTEROL 3 ML VIAL NEB ONE (09:30)
[2016-12-17] MEDS ORDERED: ALBUTEROL SULFATE 2.5 MG/3 ML VIAL NEB ONE (09:33)
[2016-12-17] MEDS: ENOXAPARIN SODIUM 30 MG/0.3 ML SYG SUBCU SCH ×2 (10:31→20:24)
--- NOTE | 2016-12-17 20:06 | PN ---
DATE: 12/17/16 SUBJECTIVE: The patient is lying in the bed on his back and tends to almost constantly pick at his clothing many times removing most of his clothing in the process. He has had some spells of incontinence. When talked to, he is able to respond and is usually quite polite, but is noticeably confused. Still having some difficulty being able to participate in his ongoing rehabilitation because of the significant confusion state. OBJECTIVE: Afebrile, pulse 61, blood pressure 112/71, pulse oximetry 96% on room air. LUNGS: Somewhat diminished breath sounds. HEART: Tones regular. ABDOMEN: Slightly distended. No significant drainage noted in the area of the left knee dressing. LABORATORY: To augment laboratory results, studies were performed and reveal a hemoglobin of 12.8 which is up compared to 12.3, white count of 6,500. Chemistries revealed potassium 3.0, BUN 23, creatinine 1.13, glucose 79. Liver enzymes normal. Ammonia normal at 13, albumin 3.4. Urinalysis showed some small amount of blood, otherwise clear. MRSA culture performed on 12/10/16 is negative. No recent x-rays performed. ASSESSMENT: 1. Postoperative day #6 left total knee arthroplasty performed by Dr. Nikolas Navarro, orthopedic surgeon. 2. Severe arthritis of the left knee having failed to respond to outpatient therapy and requiring surgical intervention to assist with symptom control. 3. History of chronic alcohol abuse with some mild alcohol withdrawal symptoms currently having reduced his Librium to a p.r.n. basis and now being observed. 4. Chronic tobacco abuse. 5. History of chronic hypertension, stable. PLAN: The patient has significant dementia findings which make full participation in the rehabilitation program somewhat difficult. For this reason , it is anticipated that we will be able to transfer him to [facility] rehabilitation where he will be able to get good [id number] nursing care as well as physical therapy rehabilitation until able to safely return home. Final evaluation for penitentiary discharge by tomorrow. [facility][id number] [facility]
[2016-12-17] MEDS: POTASSIUM CHLORIDE 10 MEQ TAB PO SCH (20:23)
[2016-12-17] MEDS: traMADol HCL 50 MG TAB PO PRN (20:23)
[2016-12-17] MEDS: DOCUSATE CALCIUM 240 MG CAP PO SCH (20:24)
[2016-12-17] MEDS: TEMAZEPAM 15 MG CAP PO PRN (20:24)
[2016-12-17] MEDS: CYCLOBENZAPRINE HCL 10 MG TAB PO PRN (21:17)
[2016-12-18 06:20] VITALS: O2SAT 95
--- NOTE | 2016-12-18 08:03 | PN ---
DATE: 12/18/16 SUBJECTIVE: Mr. Diego is resting comfortably right now and he has no complaints. OBJECTIVE: Afebrile. Vital signs stable. Wound is clean. There are no signs or symptoms of infection. ASSESSMENT: Status post total knee arthroplasty. PLAN: Mr. Diego seems to be doing a little bit better with therapy. At this point, we are going to have him continue with his weight-bearing as tolerated status. We are going to see if we can get him going a little bit higher on his CPM. [facility][id number] [facility]
[2016-12-18] MEDS: CELECOXIB 100 MG CAP PO SCH (08:07)
[2016-12-18] MEDS: ATENOLOL 25 MG TAB PO SCH (08:08)
[2016-12-18] MEDS: NICOTINE PATCH 21 MG TD SCH (08:08)
[2016-12-18] MEDS: THIAMINE HCL 100 MG TAB PO SCH (08:08)
[2016-12-18] MEDS: PRENATAL MULTIVIT-MIN W/FE-FA 1 EA TAB PO SCH (08:08)
[2016-12-18] MEDS: CHLORTHALIDONE 25 MG TAB PO SCH (08:08)
[2016-12-18] MEDS: MAGNESIUM OXIDE 400 MG TAB PO SCH (08:08)
[2016-12-18] MEDS: POTASSIUM CHLORIDE 10 MEQ TAB PO SCH (08:09)
[2016-12-18] MEDS: SODIUM CHLORIDE 0.9% (FLUSH) 10 ML SYG IV SCH (08:09)
[2016-12-18] MEDS: ALBUTEROL SULFATE 2.5 MG/3 ML VIAL NEB SCH (08:45)
[2016-12-18] MEDS: ENOXAPARIN SODIUM 30 MG/0.3 ML SYG SUBCU SCH (09:57)
[2016-12-18 11:05] VITALS: BP 180/79; TEMP 96.8
--- NOTE | 2016-12-18 11:12 | DS ---
DISCHARGE DIAGNOSIS: 1. Postoperative day #7 left total knee arthroplasty performed by Dr. Nikolas Navarro, orthopedic surgeon. 2. Severe arthritis of the left knee having failed to respond to outpatient therapy and requiring surgical intervention to assist with symptom control. 3. History of chronic alcohol abuse with some mild alcohol withdrawal symptoms in the hospital, no requiring Librium to a p.r.n. basis and to be closely observed with nutritional support. 4. Chronic tobacco abuse. 5. History of chronic hypertension, stable on medications. 6. Significant dementia with confusion state, significantly deteriorated state compared to preoperative status. This will require continued ongoing management and close observation with the patient having significantly decreased in his ability to fully respond and participate in his rehab and will require continued rehab until safe to return home. HISTORY OF PRESENT ILLNESS: This 76-year-old, white male was admitted to the hospital for elective left total knee replacement because of worsening pain that failed to respond to outpatient orthopedic intervention and eventually required surgical intervention to assist with symptom control. The patient was able to function fairly well. He has had a chronic history of ethanol intake and required some significant dosings of benzodiazepines postoperatively to help control a significants disruptive mental activity. His condition slowly returned to a more controlled state, yet the patient was still having significant inability to cooperative fully with his rehabilitation. This did not allow him to fully participate with Swing Bed rehabilitation and will require some ongoing group home and alf care facility observation and support as physical therapy rehabilitation continues at [facility]. Special attention to good nutrition and avoidance of fall is important. The patient tolerated the procedure quite well, which was successful in replacing the knee and thereby helping with significant pain relief, especially when the patient is weight-bearing. LABORATORY: Hemoglobin postoperatively was stable and was actually 12.8 close to discharge. White count 6,500. Chemistries showed potassium low at 3 with supplementation to be continued even after discharge. BUN 23, creatinine 1.13, glucose 79. Calcium 9.5. Liver enzymes normal. Ammonia level is normal at 13. Albumin 3.4. Urinalysis showed some hematuria with no culture obtained other than MRSA surveillance which was negative. X-ray shows good placement of the left knee prosthesis. Chest x-ray was also performed on the day of surgery and showed some mild airspace opacity in the left mid lung with some old left rib fractures and chronic obstructive pulmonary disease present. Close observation to continue. HOSPITAL COURSE: The patient had a somewhat difficult course. He would frequently attempt to remove his clothing and had difficulty in having bowel movements and placing the specimens around his bed. He was noticeably in a confused state and will require ongoing supportive and group home care to prevent injury, but also to hopefully get him to the point where he will fully be able to participate with his ongoing rehabilitation and then be able to return home when safe. PLAN: The patient will be transferred to alf facility at [facility] for continued rehabilitation and group home care. He will have continued followup with Adi Ku, family nurse practitioner, if specific questions arise. His diet should be soft to assist with proper nutrition with caloric protein supplementations to be offered to the patient as possible. Please refer to home medications where a complete list of medications hopefully utilized to assist in his ongoing clinical improvement. The patient is to have an appointment to be made by the correction at the time of his discharge from the correction to see Dr. Navarro in the orthopedic clinic for continued followup. He is also available to assist if questions arise regarding the wound are. May crush medications as needed to assist with their ingestion. May shower and re-dress the left knee dressing until it is well-healed, especially to try to keep it clean from any type of fecal contamination. Continue with close physical therapy observation and supervision of rehabilitation at [facility] with attention to the left knee and its continued improvement. The patient is a fall risk. Special observation due to the confusion. The patient is again encouraged to completely stop all smoking. Return if not improving. [facility][id number] [facility]
[2016-12-18] MEDS ORDERED: POTASSIUM CHLORIDE 10 MEQ TAB PO SCH (17:00)
== END 2016-12-18 11:30 | DRG 470 ==
LOC: AMB 05:48 → MS 10:15
PROVIDERS: ADMIT Orthopaedic Surgery; ATTEND Emergency Medicine
PROC: 0SRD0J9 Replacement of Left Knee Joint with Synthetic Substitute, Cemented, Open Approach (ICD-10-PCS; principal; 2016-12-11 07:06)
DX: M17.12 Unilateral primary osteoarthritis, left knee (principal); F05 Delirium due to known physiological condition; F10.239 Alcohol dependence with withdrawal, unspecified; I10 Essential (primary) hypertension; R31.9 Hematuria, unspecified; F03.90 Unspecified dementia, unspecified severity, without behavioral disturbance, psychotic disturbance, mood disturbance, and anxiety; Z79.82 Long term (current) use of aspirin; F17.210 Nicotine dependence, cigarettes, uncomplicated; Z79.899 Other long term (current) drug therapy

== ENCOUNTER 2016-12-22 11:03 | Emergency (ER) | payer MEDICARE, OTHER ==
[2016-12-22 11:15] VITALS: TEMP 96.7
--- NOTE | 2016-12-22 11:51 | ED.PDOC ---
History of Present Illness - General Chief Complaint: Problem Stated Complaint: urinary retention Time Seen by Provider: 12/22/16 11:33 Source: EMS Exam Limitations: other - CHRONIC DEMENTIA - History of Present Illness Initial Comments: NEW NH PT OF 4 D AGO. CHRONIC DEMENTIA/AMS AND NO NEW CHANGES FROM BASELINE TODAY. UNABLE TO VOID THIS AM AND NH UNABLE TO STRAIGHT CATH, THUS SENT TO ER FOR UR RETENTION. NO PAIN COMPLAINTS. FULL CODE. Timing/Duration: this morning Quality: severe Radiation: none Activites at Onset: none Sexual intercourse history: not active Improving Factors: nothing Worsening Factors: nothing Allergies/Adverse Reactions: Allergies NO KNOWN ALLERGY Allergy (Unverified 06/30/13 16:20) Home Medications: Ambulatory Orders Aspirin (Buffered) 325 mg [Bufferin 325 mg] 325 mg PO QD 11/04/15 Atenolol [Tenormin] 100 mg PO BID 11/04/15 Albuterol Sulfate Nebs [Proventil Nebs] 2.5 mg INH TID #100 vial 12/18/16 Bisacodyl Suppository 10Mg [Dulcolax Suppository 10mg] 1 ea NM DAILY PRN #10 sup 12/18/16 Chlorthalidone [Hygroton] 12.5 mg PO QAM #30 tab 12/18/16 Magnesium Hydroxide [Milk Of Magnesia] 30 ml PO DAILY PRN #30 ud 12/18/16 Multivit-Min W/Fe-FA [Pre-Annabelle Formula] 1 tab PO DAILY #30 tab Rivaroxaban [Xarelto] 10 mg PO QD #4 tab 12/18/16 Temazepam [Restoril] 15 mg PO BEDTIME PRN #30 cap 12/18/16 Tramadol HCl [Ultram] 50 mg PO Q6H PRN #30 tab 12/18/16 chlordiazePOXIDE HCL [Librium] 5 mg PO Q6H PRN #30 cap 12/18/16 Nicotine Patch 21 mg [Habitrol Patch 21mg] 21 mg TOP DAILY 12/22/16 Potassium Chloride [Micro-K] 10 meq PO DAILY 12/22/16 Review of Systems - Review of Systems Unable to Obtain Due To: dementia Past Medical History (General) - Patient Medical History Hx Seizures: No Hx Stroke: Yes - 2005 Hx Dementia: Yes Hx of COPD: Yes Hx Cardiac Disorders: No Hx Congestive Heart Failure: No Hx Hypertension: Yes Hx Diabetes: No Hx MRSA: No - Vaccination History Hx Influenza Vaccination: - unknown Hx Pneumococcal Vaccination: - unknown - Social History Hx Tobacco Use: Yes Hx Alcohol Use: Yes - Activities of Daily Living Long-Term/Assisted Living (if applicable):: [facility] Family Medical History - Family History Father Family History: Unknown Hx Cardiac Disease: Yes Hx Family;Other: patient has dementia and is a poor historian Physical Exam - Physical Exam General Appearance: Alert, No apparent distress Eyes, Ears, Nose, Throat Exam: PERRL/EOMI, normal ENT inspection, TMs normal Neck: non-tender, full range of motion, supple Cardiovascular/Respiratory: regular rate, rhythm, no M/R/G, normal peripheral pulses, no JVD Gastrointestinal/Abdominal: normal bowel sounds, other - GI SOFT, NTTP. SUPRAPUBIC (BLADDER) DISTENDED BUT NTTP. Male Genital Exam: normal genitalia Back Exam: no CVA tenderness, no vertebral tenderness Extremity: non-tender, normal inspection Neurologic: no motor/sensory deficits, other - ORIENTED X 1 (TO SELF) Skin Exam: normal color, warm/dry Lymphatic: no adenopathy Progress - Results/Orders Results/Orders: U/S - BLADDER DISTENDED, 1090 ML. PLACING INDWELLING MCNAMARA TO AVOID HAVING TO DO MULTIPLE STRAIGHT CATHS AND SINCE NH WAS UNABLE TO STRAIGHT CATH BACK FEEDER [place]YWOOD LAYUP LINE. BMP: BUN 54 AND CR 1.71. BUN/CR RATIO ELEVATED, PRE-RENAL AZOTEMIA. ORDERING 1L NS BOLUS. K+ LOW AT 3.1. GIVING 40 MEQ KCL PO. UA - BLOOD AND RBC (LIKELY TRAUMATIC FROM CATH JUST PRIOR). NEG LEUK EST AND NEG NITRITES. BOLUS AND KCL GIVEN. DC TO NH WITH FP OR URO F/U RE: INDWELLING CATHETER AND TO REPEAT UA. Departure - Departure Clinical Impression: Acute urinary retention, Acute prerenal azotemia, Hypokalemia, Mcnamara catheter in place, Hematuria Disposition: Discharge to SNF Condition: Fair Departure Forms: ED Discharge - Pt. Copy, Patient Portal Self Enrollment Instructions: DI for Urinary Retention in Men Diet: resume usual diet Activity: increase activity as tolerated Referrals: [facility], CHIEF LIBRARIAN BRANCH [Primary Care Provider] - 1-5 Days Home Medications: Ambulatory Orders Aspirin (Buffered) 325 mg [Bufferin 325 mg] 325 mg PO QD 11/04/15 Atenolol [Tenormin] 100 mg PO BID 11/04/15 Albuterol Sulfate Nebs [Proventil Nebs] 2.5 mg INH TID #100 vial 12/18/16 Bisacodyl Suppository 10Mg [Dulcolax Suppository 10mg] 1 ea NM DAILY PRN #10 sup 12/18/16 Chlorthalidone [Hygroton] 12.5 mg PO QAM #30 tab 12/18/16 Magnesium Hydroxide [Milk Of Magnesia] 30 ml PO DAILY PRN #30 ud 12/18/16 Multivit-Min W/Fe-FA [Pre-Annabelle Formula] 1 tab PO DAILY #30 tab Rivaroxaban [Xarelto] 10 mg PO QD #4 tab 12/18/16 Temazepam [Restoril] 15 mg PO BEDTIME PRN #30 cap 12/18/16 Tramadol HCl [Ultram] 50 mg PO Q6H PRN #30 tab 12/18/16 chlordiazePOXIDE HCL [Librium] 5 mg PO Q6H PRN #30 cap 12/18/16 Nicotine Patch 21 mg [Habitrol Patch 21mg] 21 mg TOP DAILY 12/22/16 Potassium Chloride [Micro-K] 10 meq PO DAILY 12/22/16 Additional Instructions: LONG TERM TO PLEASE: Arrange for patient to have follow up with family practice or urology regarding the mcnamara catheter placed today for urinary retention, pre-renal azotemia (dehydration), hypokalemia, and hematuria.
--- NOTE | 2016-12-22 12:34 | US ---
Sonogram of the bladder. Indication: BLADDER DISTENDED. NH REPORTED URINARY RETENTION. Comparison: None. IMPRESSION: Bladder distended measuring 17.8 x 9.4 x 12.5 cm with a bladder volume of 1090 mL. Mild debris noted within the posterior portion of the bladder. Correlation with urinalysis and urine cultures recommended. Electronically signed by: Ramin Luevano MD 12/22/2016 12:33 PM CDT
[2016-12-22] MEDS ORDERED: chlordiazePOXIDE HCL 5 MG CAP PO ONE (14:50)
[2016-12-22] MEDS ORDERED: POTASSIUM CHLORIDE 20 MEQ TAB PO ONE ×2 (15:45→17:25)
[2016-12-22] MEDS ORDERED: SODIUM CHLORIDE 0.9% 1000ML 1,000 ML IVS ONE (15:48)
[2016-12-22 16:21] VITALS: BP 143/65; O2SAT 99
[2016-12-22] MEDS ORDERED: POTASSIUM CHLORIDE 20 MEQ TAB ONE (17:23)
== END 2016-12-22 18:24 ==
LOC: ER 11:03
DX: R33.9 Retention of urine, unspecified (principal); E87.6 Hypokalemia; R79.89 Other specified abnormal findings of blood chemistry; R31.9 Hematuria, unspecified; J44.9 Chronic obstructive pulmonary disease, unspecified; F03.90 Unspecified dementia, unspecified severity, without behavioral disturbance, psychotic disturbance, mood disturbance, and anxiety; I10 Essential (primary) hypertension; Z87.891 Personal history of nicotine dependence
CPT/HCPCS: 36415; 76856; 80048; 81001; J7030

== ENCOUNTER → 2017-01-01 | Outpatient (CLI) | payer MEDICARE, OTHER | END | disposition home or self-care (01) | LOC: GT 06:02 | PROVIDERS: ATTEND Internal Medicine | DX: E78.6 Lipoprotein deficiency (principal); I10 Essential (primary) hypertension; R52 Pain, unspecified ==

== ENCOUNTER 2017-01-05 15:07 | Emergency (ER) | payer MEDICARE, OTHER ==
[2017-01-05 15:25] VITALS: TEMP 97.2
--- NOTE | 2017-01-05 16:19 | ED.PDOC ---
History of Present Illness - General Chief Complaint: Neuro Symptoms/Deficits Stated Complaint: altered mental status Time Seen by Provider: 01/05/17 16:18 Source: RN notes reviewed, other Exam Limitations: clinical condition, other - has chronic dementia Additional Information: Mj Diego 76 y/o male with history of CHRONIC DEMENTIA brought by nurse to ER after he was found to be talking nonsense ,disoriented except to self for the last one week; no weakness,no slurred speech .Had history of heavy alcohol use in the past and old cva in 2005 no residual deficits.No agitation staying at [facility]. - History of Present Illness Timing/Duration: 1 week Severity: moderate Improving Factors: nothing Worsening Factors: nothing Associated Symptoms: confusion - chronic Allergies/Adverse Reactions: Allergies NO KNOWN ALLERGY Allergy (Verified 01/05/17 15:25) Home Medications: Ambulatory Orders Aspirin (Buffered) 325 mg [Bufferin 325 mg] 325 mg PO QD 11/04/15 Atenolol [Tenormin] 100 mg PO BID 11/04/15 Albuterol Sulfate Nebs [Proventil Nebs] 2.5 mg INH TID #100 vial 12/18/16 Bisacodyl Suppository 10Mg [Dulcolax Suppository 10mg] 1 ea [place] DAILY PRN #10 sup 12/18/16 Chlorthalidone [Hygroton] 12.5 mg PO QAM #30 tab 12/18/16 Magnesium Hydroxide [Milk Of Magnesia] 30 ml PO DAILY PRN #30 ud 12/18/16 Multivit-Min W/Fe-FA [Pre- Formula] 1 tab PO DAILY #30 tab Rivaroxaban [Xarelto] 10 mg PO QD #4 tab 12/18/16 Temazepam [Restoril] 15 mg PO BEDTIME PRN #30 cap 12/18/16 Tramadol HCl [Ultram] 50 mg PO Q6H PRN #30 tab 12/18/16 chlordiazePOXIDE HCL [Librium] 5 mg PO Q6H PRN #30 cap 12/18/16 Nicotine Patch 21 mg [Habitrol Patch 21mg] 21 mg TOP DAILY 12/22/16 Potassium Chloride [Micro-K] 10 meq PO DAILY 12/22/16 Sulfa/Trimeth 800/160 (Ds) Tab [Bactrim DS Tab] 1 ea PO BID #30 tab 01/05/17 Review of Systems - Review of Systems Unable to Obtain Due To: dementia All other Systems: No Change from Baseline Past Medical History (General) - Patient Medical History Hx Seizures: No Hx Stroke: Yes - 2005 Hx Dementia: Yes Hx of COPD: Yes Hx Cardiac Disorders: No Hx Congestive Heart Failure: No Hx Hypertension: Yes Hx Diabetes: No Hx MRSA: No Hx Other PMH: Yes - bph;history of chronic alcoholism Surgical History: other - cataract - Vaccination History Hx Influenza Vaccination: - unknown Hx Pneumococcal Vaccination: - unknown - Social History Hx Tobacco Use: Yes Hx Alcohol Use: Yes - Activities of Daily Living [facility] (if applicable[facility]:: [facility] Family Medical History - Family History Father Family History: Unknown Hx Cardiac Disease: Yes Hx Family;Other: patient has dementia and is a poor historian Physical Exam - Physical Exam General Appearance: Alert, No apparent distress Eye Exam: bilateral normal ENT Exam: normal ENT inspection, hearing grossly normal, pharynx normal Neck: non-tender, supple Respiratory: chest non-tender, lungs clear, normal breath sounds, no respiratory distress Cardiovascular/Chest: normal peripheral pulses, regular rate, rhythm, no edema, no murmur Peripheral Pulses: radial,right: 2+, radial,left: 2+ Gastrointestinal/Abdominal: normal bowel sounds, non tender, soft, no organomegaly Back Exam: normal inspection Extremities Exam: non-tender, no evidence of injury 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 Exam: normal hearing, normal speech, PERRL Motor/Sensory: no motor deficit, no sensory deficit, no pronator drift, other - moves all extremities Skin Exam: normal color, warm/dry Progress - Progress Progress: 01/05/17 20:47 Last Vital Signs Temp 97.2 F L 01/05/17 15:07 Pulse 58 L 01/05/17 17:48 Resp 16 01/05/17 17:48 BP 111/61 01/05/17 17:48 Pulse Ox 97 01/05/17 17:48 - Results/Orders Results/Orders: Laboratory Tests 01/05/17 01/05/17 01/05/17 16:38 16:38 16:38 WBC 6.6 RBC 4.15 L Hgb 12.7 L Hct 37.0 L MCV 89.1 MCH 30.6 MCHC 34.3 RDW 13.1 Plt Count 216 MPV 9.0 Absolute Neuts (auto) Not Reportable Absolute Lymphs (auto) Not Reportable Absolute Monos (auto) Not Reportable Absolute Eos (auto) Not Reportable Neutrophils % Not Reportable Neutrophils % (Manual) 54.0 Lymphocytes % Not Reportable Lymphocytes % (Manual) 37.0 Monocytes % Not Reportable Monocytes % (Manual) 7.0 Eosinophils % Not Reportable Basophils % Not Reportable Band Neutrophils 2.0 Platelet Estimate Norm Normal RBC Morphology Normal rbc morph Sodium 137 Potassium 3.5 L Chloride 97 L Carbon Dioxide 28 Anion Gap 15.5 BUN 33 H Creatinine 1.38 H BUN/Creatinine Ratio 23.9 H Random Glucose 96 Serum Osmolality 280.9 Calcium 9.6 Magnesium Total Bilirubin 0.6 AST 22 ALT 14 Alkaline Phosphatase 61 Troponin I < 0.02 Serum Total Protein 7.0 Albumin 3.6 Globulin 3.4 Albumin/Globulin Ratio 1.1 Urine Color Urine Appearance Urine pH Ur Specific [place] Urine Protein Urine Glucose (UA) Urine Ketones Urine Blood Urine Nitrite Urine Bilirubin Urine Urobilinogen Ur Leukocyte Esterase Urine RBC Urine WBC Ur Epithelial Cells Urine Bacteria Urine Yeast 01/05/17 01/05/17 17:12 18:51 WBC RBC Hgb Hct MCV MCH MCHC RDW Plt Count MPV Absolute Neuts (auto) Absolute Lymphs (auto) Absolute Monos (auto) Absolute Eos (auto) Neutrophils % Neutrophils % (Manual) Lymphocytes % Lymphocytes % (Manual) Monocytes % Monocytes % (Manual) Eosinophils % Basophils % Band Neutrophils Platelet Estimate Normal RBC Morphology Sodium Potassium Chloride Carbon Dioxide Anion Gap BUN Creatinine BUN/Creatinine Ratio Random Glucose Serum Osmolality Calcium Magnesium 2.0 Total Bilirubin AST ALT Alkaline Phosphatase Troponin I Serum Total Protein Albumin Globulin Albumin/Globulin Ratio Urine Color Yellow Urine Appearance Sl cloudy Urine pH 5.5 Ur Specific [place] 1.020 Urine Protein Negative Urine Glucose (UA) Negative Urine Ketones 15 H Urine Blood Moderate H Urine Nitrite Negative Urine Bilirubin Small H Urine Urobilinogen 0.2 Ur Leukocyte Esterase Moderate H Urine RBC 20-30 H Urine WBC Tntc H Ur Epithelial Cells 0 Urine Bacteria 2+ H Urine Yeast 2+ - EKG/XRAY/CT EKG: Sinus, no ST T wave changes Comments: heart rate-59 XRAY: chest - left mid lung nodule CT Ordered: Yes - head w/o-no acute intracranial abnormality Departure - Departure Clinical Impression: History of alcohol use disorder, Incidental pulmonary nodule, greater than or equal to 8mm 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 Copy, Patient Portal Self Enrollment Referrals: MARGO ELLSWORTH IV DIRECTOR STERILE PROCESSING [Primary Care Provider] - 1-2 Weeks Prescriptions: Sulfa/Trimeth 800/160 (Ds) Tab [Bactrim DS Tab] 1 ea PO BID #30 tab Home Medications: Ambulatory Orders Aspirin (Buffered) 325 mg [Bufferin 325 mg] 325 mg PO QD 11/04/15 Atenolol [Tenormin] 100 mg PO BID 11/04/15 Albuterol Sulfate Nebs [Proventil Nebs] 2.5 mg INH TID #100 vial 12/18/16 Bisacodyl Suppository 10Mg [Dulcolax Suppository 10mg] 1 ea MD DAILY PRN #10 sup 12/18/16 Chlorthalidone [Hygroton] 12.5 mg PO QAM #30 tab 12/18/16 Magnesium Hydroxide [Milk Of Magnesia] 30 ml PO DAILY PRN #30 ud 12/18/16 Multivit-Min W/Fe-FA [Pre-Annabelle Formula] 1 tab PO DAILY #30 tab Rivaroxaban [Xarelto] 10 mg PO QD #4 tab 12/18/16 Temazepam [Restoril] 15 mg PO BEDTIME PRN #30 cap 12/18/16 Tramadol HCl [Ultram] 50 mg PO Q6H PRN #30 tab 12/18/16 chlordiazePOXIDE HCL [Librium] 5 mg PO Q6H PRN #30 cap 12/18/16 Nicotine Patch 21 mg [Habitrol Patch 21mg] 21 mg TOP DAILY 12/22/16 Potassium Chloride [Micro-K] 10 meq PO DAILY 12/22/16 Sulfa/Trimeth 800/160 (Ds) Tab [Bactrim DS Tab] 1 ea PO BID #30 tab 01/05/17 Additional Instructions: NEED TO SEE PSYCHIATRIST NOT REHAB
--- NOTE | 2017-01-05 17:01 | CT ---
EXAM DATE: 01/05/2017 4:25 PM CDT. PROCEDURE: CT HEAD WITHOUT IV CONTRAST. INDICATION: ams. COMPARISON: 06/15/2016. TECHNIQUE: Axial CT images of the head were acquired without intravenous contrast. This exam was performed according to our departmental dose-optimization program which includes use of Automated Exposure Control, adjustment of the mA and/or kV according to patient size and/or use of iterative reconstruction technique. FINDINGS: No acute intracranial hemorrhage. Mantilla white matter differentiation is preserved. No mass effect or midline shift. Confluent and scattered subcortical, deep, and periventricular white matter hypoattenuation compatible with advanced microvascular angiopathy. Moderate generalized brain volume loss. Bilateral lens replacement The paranasal sinuses are well aerated. Mastoid air cells are clear. Intact calvarium. IMPRESSION: No acute intracranial abnormality. Moderate generalized brain volume loss with advanced chronic microvascular angiopathy. Electronically signed by: Toney Spear MD 01/05/2017 5:00 PM CDT
--- NOTE | 2017-01-05 17:06 | RAD ---
Examination: XR CHEST 1 VIEW dated 01/05/2017 4:26 PM CDT History: ams Comparison: 12/11/2016 Technique: Frontal view of the chest Findings: 18 mm left midlung pulmonary nodule not present on exam dated 10/29/2015. Lungs otherwise clear. No pneumothorax or pleural effusion. The cardiomediastinal silhouette is within normal limits. Old left-sided rib fracture. Impression: 18 mm left midlung opacity new since 10/29/2015. Consider further evaluation with outpatient chest CT. Otherwise no acute disease. Electronically signed by: Toney Spear MD 01/05/2017 5:04 PM CDT
[2017-01-05 17:49] VITALS: O2SAT 97
[2017-01-05] MEDS ORDERED: SODIUM CHLORIDE 0.9% 1000ML 1,000 ML IVS ONE (18:52)
[2017-01-05] MEDS ORDERED: MULTIPLE VITAMIN INJ 10 ML in SODIUM CHLORIDE 0.9% 1000ML 1,000 ML IVPB ONE (18:52)
[2017-01-05] MEDS ORDERED: MULTIPLE VITAMIN INJ 10 ML, THIAMINE HCL INJ 100 MG in SODIUM CHLORIDE 0.9% 1000ML 1,00... IVS SCH (19:00)
[2017-01-05] MEDS ORDERED: MEROPENEM 500 MG in SODIUM CHL 0.9% 50ML MIN-BAG+ 50 ML IVPB ONE (19:05)
[2017-01-05] MEDS ORDERED: THIAMINE HCL INJ 100 MG/ML VIAL ONE (19:07)
[2017-01-05] MEDS ORDERED: MULTIPLE VITAMIN INJ 10 ML, THIAMINE HCL INJ 100 MG in SODIUM CHLORIDE 0.9% 1000ML 1,00... IVS ONE (19:09)
[2017-01-05] MEDS ORDERED: MULTIPLE VITAMIN 10 ML VIAL ONE (19:10)
[2017-01-05] MEDS ORDERED: SODIUM CHLORIDE 0.9% 1000ML 1,000 ML ONE (19:10)
[2017-01-05] MEDS ORDERED: MEROPENEM 500 MG VIAL IVPB ONE (19:11)
[2017-01-05] MEDS ORDERED: SODIUM CHL 0.9% 50ML MIN-BAG+ 50 ML IVPB ONE (19:11)
[2017-01-05] MEDS ORDERED: HALOPERIDOL LACTATE INJ 5 MG/ML VIAL IM ONE (19:59)
[2017-01-05] MEDS ORDERED: diphenhydrAMINE HCL 50 MG/ML VIAL IM ONE (19:59)
[2017-01-05] MEDS ORDERED: chlordiazePOXIDE HCL 25 MG CAP PO ONE ×2 (20:04)
[2017-01-05 21:46] VITALS: BP 138/79
== END 2017-01-05 22:10 ==
LOC: ER 15:07
DX: N39.0 Urinary tract infection, site not specified (principal); F02.80 Dementia in other diseases classified elsewhere, unspecified severity, without behavioral disturbance, psychotic disturbance, mood disturbance, and anxiety; Z87.898 Personal history of other specified conditions; J44.9 Chronic obstructive pulmonary disease, unspecified; I10 Essential (primary) hypertension; Z86.73 Personal history of transient ischemic attack (TIA), and cerebral infarction without residual deficits; Z79.82 Long term (current) use of aspirin; Z79.899 Other long term (current) drug therapy; R91.1 Solitary pulmonary nodule
CPT/HCPCS: 36415; 70450; 71010; 80053; 81001; 83735; 84484; 85025; 87086; 93005; J1200; J1630; J2185; J3411; J7030; J7050

== ENCOUNTER 2017-05-26 21:13 | Emergency (ER) | payer MEDICARE, OTHER ==
--- NOTE | 2017-05-26 21:27 | ED.PDOC ---
History of Present Illness - General Time Seen by Provider: 05/26/17 21:22 Source: patient, EMS Exam Limitations: other - DEMENTIA - History of Present Illness Occurred: just prior to arrival Severity: moderate Head Injury Location: frontal Method of Injury: fell Loss of Consciousness: no loss of consciousness Associated Symptoms: denies symptoms Allergies/Adverse Reactions: Allergies NO KNOWN ALLERGY Allergy (Verified 05/26/17 21:36) Home Medications: Ambulatory Orders Aspirin (Buffered) 325 mg [Bufferin 325 mg] 325 mg PO QD 11/04/15 Atenolol [Tenormin] 100 mg PO BID 11/04/15 Albuterol Sulfate Nebs [Proventil Nebs] 2.5 mg INH TID #100 vial 12/18/16 Bisacodyl Suppository 10Mg [Dulcolax Suppository 10mg] 1 ea [place] DAILY PRN #10 sup 12/18/16 Chlorthalidone [Hygroton] 12.5 mg PO QAM #30 tab 12/18/16 Magnesium Hydroxide [Milk Of Magnesia] 30 ml PO DAILY PRN #30 ud 12/18/16 Multivit-Min W/Fe-FA [Pre- Formula] 1 tab PO DAILY #30 tab Rivaroxaban [Xarelto] 10 mg PO QD #4 tab 12/18/16 Temazepam [Restoril] 15 mg PO BEDTIME PRN #30 cap 12/18/16 Tramadol HCl [Ultram] 50 mg PO Q6H PRN #30 tab 12/18/16 chlordiazePOXIDE HCL [Librium] 5 mg PO Q6H PRN #30 cap 12/18/16 Nicotine Patch 21 mg [Habitrol Patch 21mg] 21 mg TOP DAILY 12/22/16 Potassium Chloride [Micro-K] 10 meq PO DAILY 12/22/16 Sulfa/Trimeth 800/160 (Ds) Tab [Bactrim DS Tab] 1 ea PO BID #30 tab 01/05/17 Review of Systems - Review of Systems Constitutional: Denies: diaphoresis, fever EENTM: Denies: eye pain, blurred vision, double vision, ear pain, throat pain, mouth pain Respiratory: Denies: cough, orthopnea, short of breath Cardiology: Denies: chest pain, syncope Gastrointestinal/Abdominal: Denies: abdominal pain, constipation, diarrhea, nausea, vomiting Genitourinary: Denies: dysuria Musculoskeletal: Denies: joint pain, joint swelling, muscle pain, muscle stiffness, neck pain Neurological: Denies: headache, numbness, paresthesia, weakness Endocrine: States: no symptoms reported Hematologic/Lymphatic: Denies: easy bleeding, easy bruising, swollen glands All other Systems: Reviewed and Negative Past Medical History (General) - Patient Medical History Hx Seizures: No Hx Stroke: Yes - 2005 Hx Dementia: Yes Hx of COPD: Yes Hx Cardiac Disorders: No Hx Congestive Heart Failure: No Hx Hypertension: Yes Hx Diabetes: No Hx MRSA: No - Vaccination History Hx Influenza Vaccination: - unknown Hx Pneumococcal Vaccination: - unknown - Social History Hx Tobacco Use: Yes Hx Alcohol Use: Yes Family Medical History - Family History Father Family History: Unknown Hx Cardiac Disease: Yes Hx Family;Other: patient has dementia and is a poor historian Physical Exam - Physical Exam General Appearance: Agitated, Unkempt, Other - CONFUSED Head Injury: flap, lacerations, tenderness Eye Exam: left normal ENT Exam: hearing grossly normal, other - NO CLEAR DRAINAGE FROM EARS/NOSE Neck Exam: non-tender, full range of motion, normal alignment, normal inspection Cardiovascular/Respiratory: regular rate, rhythm, normal peripheral pulses, normal breath sounds, no respiratory distress Gastrointestinal/Abdominal: normal bowel sounds, non tender, soft, no organomegaly, no pulsatile mass Back Exam: no CVA tenderness, no vertebral tenderness Extremity: normal range of motion, non-tender, normal inspection 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 Skin Exam: other - 2CM LACERATION TO THE LEFT BROW, BLEEDING IS CONTROLLED Lymphatic: no adenopathy - [place] Coma Score Best Eye Response ([place]): (4) open spontaneously Best Verbal Response ([place]): (4) confused conversation Best Motor Response ([place]): (6) obeys commands Progress - Progress Progress: 05/26/17 21:29 HERE FROM A SNF WITH A WITNESSED FALL, NO LOC, NO VOMITING. WILL EVAL FOR ACUTE INTRACRAINIAL PATHOLOGY HE IS CONFUSED. WILL NEED WOUND CLOSURE. 05/26/17 23:11 ct head is unremarkable, closed wound with six 5-0 prolene, will dc back to pa at this time. - Results/Orders Results/Orders: CT HEAD, NO ACUTE INTRACRAINIAL PATHOLOGY Procedures - Laceration/Wound Repair Right Face Wound's Depth, Shape: into muscle, irregular, flap Wound Explored: no foreign body removed Irrigated w/ Saline (cc's): 125 Anesthesia: Lidocaine w/ Epi Volume Anesthetic (cc's): 5 Wound Repaired With: sutures Suture Size/Type: 5:0, prolene Number of Sutures: 6 Layer Closure?: No Sterile Dressing Applied?: Yes Splint Applied?: No Sling Applied?: No Departure - Departure Clinical Impression: Facial laceration Concussion Qualifiers: Encounter type: initial encounter Loss of consciousness presence/duration: without LOC Qualified Code(s): S06.0X0A - Concussion without loss of consciousness, initial encounter Time of Disposition: 23:10 Disposition: Discharge to Home for Condition: Fair Instructions: DI for Concussion, Laceration Repair Diet: resume usual diet Activity: increase activity as tolerated Referrals: MARGO ELLSWORTH IV, SLIVER LAPPER [Primary Care Provider] - 1-2 Weeks Home Medications: Ambulatory Orders Aspirin (Buffered) 325 mg [Bufferin 325 mg] 325 mg PO QD 11/04/15 Atenolol [Tenormin] 100 mg PO BID 11/04/15 Albuterol Sulfate Nebs [Proventil Nebs] 2.5 mg INH TID #100 vial 12/18/16 Bisacodyl Suppository 10Mg [Dulcolax Suppository 10mg] 1 ea [place] DAILY PRN #10 sup 12/18/16 Chlorthalidone [Hygroton] 12.5 mg PO QAM #30 tab 12/18/16 Magnesium Hydroxide [Milk Of Magnesia] 30 ml PO DAILY PRN #30 ud 12/18/16 Multivit-Min W/Fe-FA [Pre-Annabelle Formula] 1 tab PO DAILY #30 tab Rivaroxaban [Xarelto] 10 mg PO QD #4 tab 12/18/16 Temazepam [Restoril] 15 mg PO BEDTIME PRN #30 cap 12/18/16 Tramadol HCl [Ultram] 50 mg PO Q6H PRN #30 tab 12/18/16 chlordiazePOXIDE HCL [Librium] 5 mg PO Q6H PRN #30 cap 12/18/16 Nicotine Patch 21 mg [Habitrol Patch 21mg] 21 mg TOP DAILY 12/22/16 Potassium Chloride [Micro-K] 10 meq PO DAILY 12/22/16 Sulfa/Trimeth 800/160 (Ds) Tab [Bactrim DS Tab] 1 ea PO BID #30 tab 01/05/17 Additional Instructions: suture removal in 5-7 days
[2017-05-26 21:43] VITALS: TEMP 97.4
--- NOTE | 2017-05-26 22:19 | CT ---
EXAM DESCRIPTION: Head CLINICAL HISTORY: 77 years Male FALL HEAD INJURY COMPARISON: January 05, 2017. TECHNIQUE: Noncontrast axial scans of the brain were obtained. Sagittal and coronal reformatted images were performed. This exam was performed according to our departmental dose-optimization program, which includes automated exposure control, adjustment of the mA and/or kV according to patient size and/or use of iterative reconstruction technique. FINDINGS: There is no evidence of acute intracranial hemorrhage, extracerebral fluid collection, midline shift, obvious mass effect, or major territorial infarction. The ventricles are enlarged, and there is prominence of the cortical sulci, sylvian fissures, and basilar cisterns. Decreased attenuation is noted in the periventricular areas and deep white matter, consistent with diffuse microvascular ischemic changes, including a tiny old left lacunar infarct. These findings appear about the same as on the previous study. Vascular calcifications are noted at the base of the brain. The bony calvarium appears intact. Possible slight lower right frontal scalp swelling. Visualized paranasal sinuses and mastoid air cells appear clear. IMPRESSION: No evidence of acute intracranial hemorrhage. Findings consistent with atrophic and microvascular ischemic changes, essentially stable. 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
[2017-05-26] MEDS ORDERED: CHLORHEXIDINE GLUCONATE 4 % 15 ML UD TOP ONE (22:24)
[2017-05-26] MEDS ORDERED: LIDOCAINE 2% W/ EPINEPHRINE 20 ML VIAL INJ ONE (22:45)
[2017-05-26] MEDS ORDERED: NEOMYCIN-BACITRACIN-POLYMYXIN 0.9 GM UD TOP ONE (22:53)
[2017-05-26 23:17] VITALS: O2SAT 95
[2017-05-26 23:48] VITALS: BP 97/39
[2017-05-27] MEDS ORDERED: NEOMYCIN-BACITRACIN-POLYMYXIN 0.9 GM UD TOP SCH (09:00)
== END 2017-05-26 23:53 | disposition home health service (06) ==
LOC: ER 21:13
DX: S01.112A Laceration without foreign body of left eyelid and periocular area, initial encounter (principal); S06.0X0A Concussion without loss of consciousness, initial encounter; F03.90 Unspecified dementia, unspecified severity, without behavioral disturbance, psychotic disturbance, mood disturbance, and anxiety; W19.XXXA Unspecified fall, initial encounter; Y92.129 Unspecified place in nursing home as the place of occurrence of the external cause

== ENCOUNTER 2017-06-01 11:25 | Emergency (ER) | payer MEDICARE, OTHER ==
[2017-06-01 11:38] VITALS: TEMP 97.1
[2017-06-01] MEDS ORDERED: LIDOCAINE 2% W/ EPINEPHRINE 20 ML VIAL INJ ONE (11:53)
[2017-06-01] MEDS ORDERED: CHLORHEXIDINE GLUCONATE 4 % 15 ML UD TOP ONE (12:06)
--- NOTE | 2017-06-01 12:09 | ED.PDOC ---
History of Present Illness - General Chief Complaint: Trauma Stated Complaint: fall Time Seen by Provider: 06/01/17 11:45 Source: EMS notes reviewed Exam Limitations: other - Has dementia per EMS - History of Present Illness Initial Comments: [facility] PT ON HOSPICE. FELL AND HAD RECENT LAC REPAIR. FELL AGAIN AND IS BLEEDING THROUGH THE LAC REPAIR. Timing/Duration: constant Severity: moderate Improving Factors: nothing Worsening Factors: nothing Associated Symptoms: denies symptoms Allergies/Adverse Reactions: Allergies NO KNOWN ALLERGY Allergy (Verified 06/01/17 11:39) Home Medications: Ambulatory Orders Aspirin (Buffered) 325 mg [Bufferin 325 mg] 325 mg PO QD 11/04/15 Atenolol [Tenormin] 100 mg PO BID 11/04/15 Albuterol Sulfate Nebs [Proventil Nebs] 2.5 mg INH TID #100 vial 12/18/16 Bisacodyl Suppository 10Mg [Dulcolax Suppository 10mg] 1 ea [place] DAILY PRN #10 sup 12/18/16 Chlorthalidone [Hygroton] 12.5 mg PO QAM #30 tab 12/18/16 Magnesium Hydroxide [Milk Of Magnesia] 30 ml PO DAILY PRN #30 ud 12/18/16 Multivit-Min W/Fe-FA [Pre-Annabelle Formula] 1 tab PO DAILY #30 tab Rivaroxaban [Xarelto] 10 mg PO QD #4 tab 12/18/16 Temazepam [Restoril] 15 mg PO BEDTIME PRN #30 cap 12/18/16 Tramadol HCl [Ultram] 50 mg PO Q6H PRN #30 tab 12/18/16 chlordiazePOXIDE HCL [Librium] 5 mg PO Q6H PRN #30 cap 12/18/16 Nicotine Patch 21 mg [Habitrol Patch 21mg] 21 mg TOP DAILY 12/22/16 Potassium Chloride [Micro-K] 10 meq PO DAILY 12/22/16 Sulfa/Trimeth 800/160 (Ds) Tab [Bactrim DS Tab] 1 ea PO BID #30 tab 01/05/17 Review of Systems - Review of Systems Unable to Obtain Due To: dementia Past Medical History (General) - Patient Medical History Hx Seizures: No Hx Stroke: Yes - 2005 Hx Dementia: Yes Hx Asthma: No Hx of COPD: Yes Hx Cardiac Disorders: No Hx Congestive Heart Failure: No Hx Pacemaker: No Hx Hypertension: Yes Hx Thyroid Disease: No Hx Diabetes: No Hx Gastroesophageal Reflux: Yes Hx Renal Disease: No Hx Cancer: No Hx of HIV: No Hx Hepatitis C: No Hx MRSA: No - Vaccination History Hx Tetanus, Diphtheria Vaccination: No Hx Influenza Vaccination: - unknown Hx Pneumococcal Vaccination: - unknown - Social History Hx Tobacco Use: No Hx Alcohol Use: No Hx Substance Use: No Hx Substance Use Treatment: No Hx Depression: No - Activities of Daily Living [facility]osp[facility] Agency (if applicable):: [facility] Family Medical History - Family History Father Family History: Unknown Hx Cardiac Disease: Yes Hx Family;Other: patient has dementia and is a poor historian Physical Exam - Physical Exam General Appearance: Comfortable, Well Hydrated Eye Exam: bilateral normal Ears, Nose, Throat: normal ENT inspection, normal pharynx, other - NEG FOSTER SIGN, NEG RACCOON EYES. NO EVIDENCE OF ANY OTHER HEAD, NECK OR OTHER BONY TRAUMA TO BODY OTHER THAN SKIN LAC. Neck: full range of motion, supple Respiratory: lungs clear, normal breath sounds Cardiovascular/Chest: normal peripheral pulses, regular rate, rhythm Peripheral Pulses: radial,right: 2+, radial,left: 2+ Gastrointestinal/Abdominal: normal bowel sounds, non tender, soft Back Exam: normal inspection, no CVA tenderness Extremity: non-tender, normal inspection Neurologic: no motor/sensory deficits Skin Exam: other - R FOREHEAD LAC 4.5 CM. PULSATILE (ARTERIAL) BLEEDING THROUGH SUTURE LINE. Lymphatic: no adenopathy Progress - Results/Orders Results/Orders: MANUAL PRESSURE APPLIED X 10 MIN. BLEEDING/OOZING PERSISTED THROUGH THE SUTURES WHICH IS REASONABLE GIVEN HE IS ON XARELTO. I THEN ANESTHETIZED WITH LIDOCAINE W/ EPI, WHICH CAUSED EXCELLENT HEMOSTATSIS. I THEN REINFORCED WITH RUNNING SUTURE TO PREVENT RECURRENCE OF BLEEDING FOR ONCE THE EPINEPHRINE IS METABOLIZED. SUCCESSFUL LACERATION HEMOSTASIS WITH SUTURE REPAIR. VS WNL. SAFE FOR DC BACK TO [facility] FOR CONTINUED HOSPICE CARE. Procedures - Laceration/Wound Repair Right Face Wound Length (cm): 4.5 Wound's Depth, Shape: superficial Wound Explored: clean Betadine Prep?: Yes - HIBCLENZ Anesthesia: Lidocaine w/ Epi Volume Anesthetic (cc's): 5 Wound Debrided: minimal Wound Repaired With: sutures Suture Size/Type: 3:0, prolene Number of Sutures: 1 - UNINTERRUPTED Layer Closure?: No Sterile Dressing Applied?: Yes Splint Applied?: No Sling Applied?: No Departure - Departure Clinical Impression: Laceration of face, Dementia due to another medical condition, Hemorrhage Disposition: Discharge to SNF Condition: Good Departure Forms: ED Discharge - Pt. Copy, Patient Portal Self Enrollment Diet: resume usual diet Referrals: MARGO ELLSWORTH IV, CLERK SPECIALIST [Primary Care Provider] - 1-2 Weeks Home Medications: Ambulatory Orders Aspirin (Buffered) 325 mg [Bufferin 325 mg] 325 mg PO QD 11/04/15 Atenolol [Tenormin] 100 mg PO BID 11/04/15 Albuterol Sulfate Nebs [Proventil Nebs] 2.5 mg INH TID #100 vial 12/18/16 Bisacodyl Suppository 10Mg [Dulcolax Suppository 10mg] 1 ea [place] DAILY PRN #10 sup 12/18/16 Chlorthalidone [Hygroton] 12.5 mg PO QAM #30 tab 12/18/16 Magnesium Hydroxide [Milk Of Magnesia] 30 ml PO DAILY PRN #30 ud 12/18/16 Multivit-Min W/Fe-FA [Pre- Formula] 1 tab PO DAILY #30 tab Rivaroxaban [Xarelto] 10 mg PO QD #4 tab 12/18/16 Temazepam [Restoril] 15 mg PO BEDTIME PRN #30 cap 12/18/16 Tramadol HCl [Ultram] 50 mg PO Q6H PRN #30 tab 12/18/16 chlordiazePOXIDE HCL [Librium] 5 mg PO Q6H PRN #30 cap 12/18/16 Nicotine Patch 21 mg [Habitrol Patch 21mg] 21 mg TOP DAILY 12/22/16 Potassium Chloride [Micro-K] 10 meq PO DAILY 12/22/16 Sulfa/Trimeth 800/160 (Ds) Tab [Bactrim DS Tab] 1 ea PO BID #30 tab 01/05/17
[2017-06-01] MEDS ORDERED: NEOMYCIN-BACITRACIN-POLYMYXIN 0.9 GM UD TOP ONE (12:46)
[2017-06-01 13:40] VITALS: BP 109/63; O2SAT 97
== END 2017-06-01 13:00 ==
LOC: ER 11:25
DX: T81.31XA Disruption of external operation (surgical) wound, not elsewhere classified, initial encounter (principal); F03.90 Unspecified dementia, unspecified severity, without behavioral disturbance, psychotic disturbance, mood disturbance, and anxiety; I10 Essential (primary) hypertension; Z79.01 Long term (current) use of anticoagulants; Z79.82 Long term (current) use of aspirin